=== PATIENT | female | born 1990 ===

== ENCOUNTER 2022-12-21 11:27 | Outpatient (CLI) | payer OTHER | END 2022-12-21 12:58 | disposition home or self-care (01) | LOC: PRENATAL 11:27 | PROVIDERS: ATTEND Obstetrics & Gynecology Maternal & Fetal Medicine | DX: O26.849 Uterine size-date discrepancy, unspecified trimester (principal); Z36 Encounter for antenatal screening of mother; Z3A.15 15 weeks gestation of pregnancy ==

== ENCOUNTER 2023-01-21 10:51 | Outpatient (CLI) | payer OTHER | END 2023-01-21 11:51 | disposition home or self-care (01) | LOC: PRENATAL 10:51 | PROVIDERS: ATTEND Obstetrics & Gynecology Maternal & Fetal Medicine | DX: O35.9XX0 Maternal care for (suspected) fetal abnormality and damage, unspecified, not applicable or unspecified (principal); O35.3XX0 Maternal care for (suspected) damage to fetus from viral disease in mother, not applicable or unspecified; Z3A.19 19 weeks gestation of pregnancy ==

== ENCOUNTER 2023-03-22 22:53 | Emergency (ER) | payer OTHER ==
[~2023-03-22] VITALS: Ht 154.9 cm; Wt 67.1 kg
[2023-03-22] MEDS ORDERED: PRENATAL TABLE1 EAC1 PO (23:00)
[2023-03-23] MEDS ORDERED: ONDANSETRON ODT4 MG PO (02:29)
[2023-03-23] MEDS ORDERED: PEPCID40 MG PO (02:29)
== END 2023-03-23 02:36 | disposition home or self-care (01) ==
LOC: ER 22:53
DX: O21.9 Vomiting of pregnancy, unspecified (principal); Z3A.28 28 weeks gestation of pregnancy

== ENCOUNTER 2023-04-20 10:03 | Outpatient (CLI) | payer OTHER ==
[~2023-04-20 10:03] MED LIST: ONDANSETRON ODT4 MG PO; PEPCID40 MG PO; PRENATAL TABLE1 EAC1 PO
== END 2023-04-20 11:05 | disposition home or self-care (01) ==
LOC: PRENATAL 10:03
PROVIDERS: ATTEND Obstetrics & Gynecology Maternal & Fetal Medicine
DX: O26.849 Uterine size-date discrepancy, unspecified trimester (principal); O35.9XX0 Maternal care for (suspected) fetal abnormality and damage, unspecified, not applicable or unspecified; O36.8199 Decreased fetal movements, unspecified trimester, other fetus; Z3A.32 32 weeks gestation of pregnancy

== ENCOUNTER 2023-05-26 10:50 | Outpatient (CLI) | payer OTHER | END 2023-05-26 22:51 | disposition home or self-care (01) | LOC: NST 10:50 → OBS/DEL 10:50 | PROVIDERS: ATTEND Obstetrics & Gynecology | DX: O23.33 Infections of other parts of urinary tract in pregnancy, third trimester (principal); N39.0 Urinary tract infection, site not specified; Z3A.37 37 weeks gestation of pregnancy; Z91.013 Allergy to seafood ==

== ENCOUNTER 2023-06-03 22:15 | Inpatient (IN) | payer OTHER ==
[~2023-06-03] VITALS: Ht 152.4 cm; Wt 72.6 kg
== END 2023-06-06 16:51 | disposition home or self-care (01) | DRG 807 ==
LOC: LDR 22:15 → OB/GYN 22:15
PROVIDERS: Obstetrics & Gynecology; ADMIT Obstetrics & Gynecology; ATTEND Obstetrics & Gynecology
PROC: 4A1HXCZ Monitoring of Products of Conception, Cardiac Rate, External Approach (ICD-10-PCS; 2023-06-03)
PROC: 10E0XZZ Delivery of Products of Conception, External Approach (ICD-10-PCS; principal; 2023-06-04)
PROC: 0UQG7ZZ Repair Vagina, Via Natural or Artificial Opening (ICD-10-PCS; 2023-06-04)
DX: O71.4 Obstetric high vaginal laceration alone (principal); Z37.0 Single live birth; Z3A.38 38 weeks gestation of pregnancy; Z20.822 Contact with and (suspected) exposure to COVID-19